=== PATIENT | male | born 1965 | race Caucasian/White ===

== ENCOUNTER 2025-07-01 10:03 | Inpatient (IN) ==
--- NOTE | 2025-06-11 11:01 | PAT Medication Instructions ---
Medication Instructions Date of Service June 11, 2025 Home Medications Medication Instructions Recorded azelastine 137 mcg (0.1 %) nasal 2 spray intranasal BID PRN nasal 07/30/24 spray congestion #30 mL ipratropium bromide 21 mcg (0.03 2 spray intranasal TID PRN 07/30/24 %) nasal spray postnasal drip #30 mL ascorbic acid (vitamin C) 500 mg capsule 500 mg PO QAM multivitamin 1 tab PO QAM cetirizine 10 mg capsule (Allergy Relief (cetirizine)) 10 mg PO QAM tadalafil 5 mg tablet 5 mg PO DAILY PRN Erectile Dysfunction azelastine 137 mcg (0.1 %) nasal spray 2 spray intranasal BID PRN nasal congestion ipratropium bromide 21 mcg (0.03 %) nasal spray 2 spray intranasal TID PRN postnasal drip rosuvastatin 20 mg tablet 10 mg PO Q2D cholecalciferol (vitamin D3) 125 mcg (5,000 unit) tablet (Vitamin D3) 125 mcg PO QAM coenzyme Q10 100 mg capsule (Co Q-10) 100 mg PO QAM escitalopram oxalate 20 mg tablet 20 mg PO QAM fluticasone propionate 50 mcg/actuation nasal spray,suspension 2 spray intranasal DAILY PRN Congestion lansoprazole 30 mg delayed release,disintegrating tablet 30 mg PO QAM Continue as directed rosuvastatin 20 mg tablet 10 mg PO Q2D DO NOT take the morning of surgery ascorbic acid (vitamin C) 500 mg capsule 500 mg PO QAM multivitamin 1 tab PO QAM cetirizine 10 mg capsule (Allergy Relief (cetirizine)) 10 mg PO QAM tadalafil 5 mg tablet 5 mg PO DAILY PRN Erectile Dysfunction cholecalciferol (vitamin D3) 125 mcg (5,000 unit) tablet (Vitamin D3) 125 mcg PO QAM Take morning of surgery With a small sip of water, OTHERWISE NOTHING TO EAT OR DRINK AFTER MIDNIGHT: azelastine 137 mcg (0.1 %) nasal spray 2 spray intranasal BID PRN nasal conges tion (if needed) ipratropium bromide 21 mcg (0.03 %) nasal spray 2 spray intranasal TID PRN postnasal drip (if needed) escitalopram oxalate 20 mg tablet 20 mg PO QAM fluticasone propionate 50 mcg/actuation nasal spray,suspension 2 spray intranasal DAILY PRN Congestion (if needed) lansoprazole 30 mg delayed release,disintegrating tablet 30 mg PO QAM Take evening before surgery azelastine 137 mcg (0.1 %) nasal spray 2 spray intranasal BID PRN nasal congestion (if needed) ipratropium bromide 21 mcg (0.03 %) nasal spray 2 spray intranasal TID PRN postnasal drip (if needed) fluticasone propionate 50 mcg/actuation nasal spray,suspension 2 spray intranasal DAILY PRN Congestion (if needed) Other Notes If you have any questions please call us at [phone] or [phone] or [phone] or [phone]
--- NOTE | 2025-06-16 13:05 | Anesthesiology Consultation ---
Date of Service June 16, 2025 Assessment & Plan (1) Encounter for pre-operative examination: - surgeon ordered medical clearance 06/25 [facility]. Chart Review Chart Review: Patient seen in Pre Admission Testing Teaching & Discussion Pre-Anesthesia Teaching/Discussion Notes: Instructed NPO after midnight before surgery, except medications with 15 cc of water. Medication instructions provid ed according to the PAT guidelines. History Surgery Operation Date: 07/01/25 07:45 Proposed Procedures p L3-S1 Revision Deocompression and Fusion - Kailash Luna DO Height/Weight Height: 6 ft 1 in Weight: 137.2 kg Allergies Allergy/AdvReac Type Severity Reaction Status Date / Time celecoxib [From Celebrex] Allergy Severe Hives Verified 06/16/25 13:30 doxycycline Allergy Severe Hives Verified 06/16/25 13:30 prednisone Allergy Severe hives, Verified 06/16/25 15:26 angioedema Sulfa (Sulfonamide Allergy Severe hives Verified 06/16/25 13:30 Antibiotics) Penicillins Allergy Hives Verified 06/16/25 13:30 albuterol Allergy Severe hives, Uncoded 06/16/25 13:30 angioedema Additional Notes: see notations on allergy list-patient reports multiple (not all) allergies are to pill/capsule formulation but tolerates liquid form. Medications Home Medications Medication Instructions Recorded Confirmed Last Taken ascorbic acid (vitamin C) 500 mg 500 mg PO QAM 09/24/23 06/04/25 Unknown capsule multivitamin 1 tab PO QAM 09/24/23 06/04/25 Unknown cetirizine 10 mg capsule (Allergy 10 mg PO QAM 07/15/24 06/04/25 Unknown Relief (cetirizine)) tadalafil 5 mg tablet 5 mg PO DAILY PRN Erectile 07/15/24 06/04/25 Unknown Dysfunction azelastine 137 mcg (0.1 %) nasal 2 spray intranasal BID PRN nasal 07/30/24 06/04/25 Unknown spray congestion #30 mL ipratropium bromide 21 mcg (0.03 2 spray intranasal TID PRN 07/30/24 06/04/25 Unknown %) nasal spray postnasal drip #30 mL rosuvastatin 20 mg tablet 10 mg PO Q2D 07/30/24 06/04/25 Unknown cholecalciferol (vitamin D3) 125 125 mcg PO QAM 06/04/25 06/04/25 Unknown mcg (5,000 unit) tablet (Vitamin D3) coenzyme Q10 100 mg capsule (Co 100 mg PO QAM 06/04/25 06/04/25 Unknown Q-10) escitalopram oxalate 20 mg tablet 20 mg PO QAM 06/04/25 06/04/25 Unknown fluticasone propionate 50 2 spray intranasal DAILY PRN 06/04/25 06/04/25 Unknown mcg/actuation nasal Congestion spray,suspension lansoprazole 30 mg delayed 30 mg PO QAM 06/04/25 06/04/25 Unknown release,disintegrating tablet Past Medical History Medical History (Updated 06/16/25 @ 13:33 by Pham Irby PA-C) Chronic GERD controlled, stable per pt Chronic rhinitis Hearing loss hearing aids bilat High cholesterol Hx of migraines gets botox injections every 3 months Paresthesia of left leg denies change or worsening PTSD (post-traumatic stress disorder) Sleep apnea CPAP compliant Weakness of right leg denies change or worsening Patient denies h/o stroke, seizures, heart attack, heart failure, DM, HTN, blood clots/DVTs or blood transfusions. Exercise / Class Metabolic Activity II 4-5 Yardwork/Stairs/Walk up hill (shortness of breath with one flight of stairs ongoing for several months with reduction in activity/back pain; denies change/worsening; denies chest discomfort) Past Surgical History Surgical History H/O inguinal hernia repair right H/O lateral meniscus repair of left knee 08/2023 H/O sinus surgery "years ago" History of esophagogastroduodenoscopy (EGD) History of lumbar laminectomy 2014, L3-L5 Hx of colonoscopy S/P repair of hydrocele Past Anesthesia History No Hx of Anesthesia Complications and No Family Hx of Anesthesia Complications History of PONV No Hx of PONV and No Hx of Motion Sickness Social History Smoking Status: Never smoker Do You Dip or Chew Tobacco: No (quit 30 years ago) Hx Alcohol Use: Yes Alcohol type: beer alcohol intake frequency: holidays/special occasions only Hx Substance Use: No substance use type: does not use Review of Systems Patient denies chest pain, fever, chills, cough, wheezing, or palpitations. Physical Exam Vital Signs Vitals BP 123/82 P 68 TEMP 98 SP02 95% on RA RESP 18 Physical Patient resting comfortably in chair in no acute distress, alert and oriented, responding appropriately throughout visit Full cervical extension range of motion without pain TMD 3 finger breadths Mallampati Score 3 Dentition: intact, denies chipped or loose teeth, caps/crowns, implants or bridges Lungs: normal respiratory effort. Good air movement, clear throughout to auscultation, no adventitious breath sounds Cardiac: regular rate and rhythm, no murmurs noted Carotid arteries: negative bruit bilat Lab Results Anesthesia Preop Results Results Anesthesia Widget: WBC 7.07 K/ul (4.8-10.8) 06/16/25 Hgb 15.0 g/dl (14.0-18.0) 06/16/25 Hct 43.2 % (42.0-52.0) 06/16/25 Plt 227 K/uL (130-400) 06/16/25 Na 140 mmol/L (136-145) 06/16/25 K 4.4 mmol/L (3.5-5.1) 06/16/25 Cl 103 mmol/L (98-107) 06/16/25 CO2 30 mmol/L (21-32) 06/16/25 BUN 16 mg/dl (6-23) 06/16/25 Creat 1.24 mg/dl (0.6-1.4) 06/16/25 Glucose Level 96 mg/dl (70-99(Fasting)) 06/16/25 PT 10.4 Seconds (9.0-12.0) 06/16/25 PTT 26 Seconds (21-31) 06/16/25 INR 1.0 (0.9-1.1) 06/16/25 Urine Color Yellow 06/16/25 Urine Appearance Clear (Clear) 06/16/25 Urine pH 5.5 (4.5-7.5) 06/16/25 Urine Specific [place] 1.014 (1.000-1.030) 06/16/25 Urine Protein Negative (Negative) 06/16/25 Urine Glucose (UA) Negative (Negative) 06/16/25 Urine Ketones Negative (Negative) 06/16/25 Urine Blood Negative (Negative) 06/16/25 Urine Nitrite Negative (Negative) 06/16/25 Urine Bilirubin Negative (Negative) 06/16/25 Urine Urobilinogen Negative (Negative) 06/16/25 Urine Leukocyte Esterase Negative (Negative) 06/16/25 Blood Type A Negative 06/16/25 Antibody Screen NEGATIVE 06/16/25 Testing Electrocardiogram Date: 06/16/25 NSR, rate 69 bpm Chest X-Ray Date: 06/16/25 No acute findings.
[~2025-07-01 10:03] MED LIST: CeleBREX 200 MG CAP PO SCH
[2025-07-01] MEDS ORDERED: ROCURONIUM BROMIDE 10 MG/ML 5 ML VIAL IV ONE ×3 (10:30→13:00)
[2025-07-01] MEDS ORDERED: LIDOCAINE 2% 2 ML VIAL/AMP(20MG/ML) INFIL ONE (10:30)
[2025-07-01] MEDS ORDERED: MIDAZOLAM HCL 1 MG/ML 2ML VIAL ONE (10:30)
[2025-07-01] MEDS ORDERED: PROPOFOL IV EMULSION 10 MG/ML 20 ML VIAL IV ONE (10:30)
[2025-07-01] MEDS: LR 15ML/HR IV SCH (10:48)
[2025-07-01] MEDS: LR 60ML/HR IV SCH (10:48)
[2025-07-01] MEDS ORDERED: ATROPINE SULFATE 0.1 MG/ML 10ML SYR IV PRN (10:49)
[2025-07-01] MEDS ORDERED: ONDANSETRON INJ 2 MG/ML 2 ML VIAL IV PRN ×2 (10:49→18:31)
[2025-07-01] MEDS: ACETAMINOPHEN 500 MG TAB PO SCH (11:00)
[2025-07-01] MEDS: GABAPENTIN 600 MG DOSE PO SCH (11:01)
--- NOTE | 2025-07-01 11:14 | History & Physical Bridge Note ---
Date of Service July 01, 2025 History & Physical Bridge Note I have examined the patient, reviewed the History & Physical and in the interval since the performance of the History & Physical I have noted the following changes of clinical significance: no changes noted
--- NOTE | 2025-07-01 11:15 | History & Physical Report ---
Date of Service July 01, 2025 Assessment & Plan (1) Multilevel lumbosacral spondylosis with radiculopathy: Plan: L3-S1 revision decompression fusion History of Present Illness Chief Complaint: Back and bilateral leg pain Primary Care Provider: MARIE Smith This is a 60-year-old male with chronic persistent back and right leg pain after failing course of nonoperative care is here for surgical invention. Allergies Allergy/AdvReac Type Severity Reaction Status Date / Time celecoxib [From Celebrex] Allergy Severe Hives Verified 07/01/25 10:06 doxycycline Allergy Severe Hives Verified 07/01/25 10:06 prednisone Allergy Severe hives, Verified 07/01/25 10:06 angioedema Sulfa (Sulfonamide Allergy Severe hives Verified 07/01/25 10:06 Antibiotics) Penicillins Allergy Hives Verified 07/01/25 10:06 albuterol Allergy Severe hives, Uncoded 07/01/25 10:06 angioedema Home Medications Medication Instructions Recorded Confirmed Type ascorbic acid (vitamin C) 500 mg 500 mg PO QAM 09/24/23 07/01/25 History capsule multivitamin 1 tab PO QAM 09/24/23 07/01/25 History cetirizine 10 mg capsule (Allergy 10 mg PO QAM 07/15/24 07/01/25 History Relief (cetirizine)) tadalafil 5 mg tablet 5 mg PO DAILY PRN Erectile 07/15/24 07/01/25 History Dysfunction azelastine 137 mcg (0.1 %) nasal 2 spray intranasal BID PRN nasal 07/30/24 07/01/25 Rx spray congestion #30 mL ipratropium bromide 21 mcg (0.03 2 spray intranasal TID PRN 07/30/24 07/01/25 Rx %) nasal spray postnasal drip #30 mL rosuvastatin 20 mg tablet 10 mg PO Q2D 07/30/24 07/01/25 History cholecalciferol (vitamin D3) 125 125 mcg PO QAM 06/04/25 07/01/25 History mcg (5,000 unit) tablet (Vitamin D3) coenzyme Q10 100 mg capsule (Co 100 mg PO QAM 06/04/25 07/01/25 History Q-10) escitalopram oxalate 20 mg tablet 20 mg PO QAM 06/04/25 07/01/25 History fluticasone propionate 50 2 spray intranasal DAILY PRN 06/04/25 07/01/25 History mcg/actuation nasal Congestion spray,suspension lansoprazole 30 mg delayed 30 mg PO QAM 06/04/25 07/01/25 History release,disintegrating tablet Past Med/Surg History Problem List (Updated 07/01/25 @ 11:15 by Kailash Luna DO) Multilevel lumbosacral spondylosis with radiculopathy Encounter for pre-operative examination Chronic rhinitis Multiple drug allergies Lumbar radiculopathy Other chronic postprocedural pain Lumbar post-laminectomy syndrome Facet hypertrophy of lumbosacral region Lumbosacral radiculopathy Paresthesia of both lower extremities Weakness of right lower extremity Chronic GERD High cholesterol Medical History (Updated 07/01/25 @ 11:15 by Kailash Luna DO) Hearing loss hearing aids bilat PTSD (post-traumatic stress disorder) Hx of migraines gets botox injections every 3 months Sleep apnea CPAP compliant Weakness of right leg denies change or worsening Paresthesia of left leg denies change or worsening High cholesterol Chronic rhinitis Chronic GERD controlled, stable per pt Surgical History History of esophagogastroduodenoscopy (EGD) Hx of colonoscopy History of lumbar laminectomy 2014, L3-L5 H/O lateral meniscus repair of left knee 08/2023 H/O inguinal hernia repair right H/O sinus surgery "years ago" S/P repair of hydrocele Social History Smoking Status: Never smoker Tobacco Type: Smokeless Tobacco (Dip or Chew) Second Hand Exposure: Yes (hx in the service); Do You Dip or Chew Tobacco: No (quit 30 years ago); Tobacco Cessation Education Requested by Patient: No Hx Alcohol Use: Yes Alcohol type: beer Alcohol type Comment: socially Alcohol Intake Frequency: Monthly or Less Hx Substance Use: No Preferred Language: Georgian Communication Ability: Effective Visual Impairment: No Limitations Hearing Ability: Normal [employer] Required: No Beliefs That Will Affect Care: None marital status: Current Living Situation: Spouse current occupational status: retired current occupation: [employer] and worked for the [employer] Other Information That Helps Us Care for You: No Feels Safe at Home: Yes Safety Concerns: Feels Safe At This Time Assistive Devices: CPAP, Glasses and Hearing Aid - Bilateral Physical Exam Physical Exam: Patient is alert and oriented Heart regular rhythm lungs clear Results & Data Results & Data Vital Signs (Past 12 Hours) Vital Signs Temp Pulse Resp BP Pulse Ox O2 Del Method 07/01/25 10:08 37.1 C 73 18 138/77 95 Room Air, CPAP
[2025-07-01] MEDS: ceFAZolin 3000MG 3,000 MG/72.5 ML BAG IV SCH (11:46)
[2025-07-01] MEDS ORDERED: KETAMINE HCL 10MG/ML SYR ONE (11:48)
[2025-07-01] MEDS ORDERED: DEXAMETHASONE SOD INJ 4 MG/ML VIAL ONE (12:07)
[2025-07-01] MEDS ORDERED: PHENYLEPHRINE 100MCG/ML 5ML SYR ONE ×2 (12:19→13:47)
[2025-07-01] MEDS: BUPIVACAINE/EPINEPHRINE 0.25% 1:200,000 30 ML VIAL ONE (12:23)
[2025-07-01] MEDS: ceFAZolin 330 MG/ML 1 GM VIAL ONE (12:23)
[2025-07-01] MEDS ORDERED: ONDANSETRON INJ 2 MG/ML 2 ML VIAL ONE (13:08)
[2025-07-01] MEDS ORDERED: SUGAMMADEX SODIUM 200 MG/2 ML VIAL IV ONE (13:08)
[2025-07-01] MEDS ORDERED: ePHEDrine sulfate 50 MG/5 ML SYR ONE (13:47)
[2025-07-01] MEDS: FLOSEAL HEMOSTATIC MATRIX 10ML TOP ONE (14:02)
--- NOTE | 2025-07-01 14:14 | Operative Report ---
Post Operative Report Pre & Post Diagnosis Operation Date: 07/01/25 11:25 Pre-Op Diagnosis: (1) Multilevel lumbosacral spondylosis with radiculopathy Post-Op Diagnosis: (1) Multilevel lumbosacral spondylosis with radiculopathy I identified the patient and participated in the time-out.: Yes Procedure Operation Date: 07/01/25 11:25 Actual Procedures #1 revision decompression with medial facetectomies and foraminotomies L3-L4, L4-L5 L5-S1. #2 posterior spinal fusion L3-S1. #3 placement posterior segmental instrumentation L3-S1 using camber. #4 interbody fusion L3-L4 L4-L5 L5-S1. #5 placement Spira 14 x 26 mm at L3-L4, 14 x 26 mm at L4-L5 and 13 x 26 mm at L5-S1. #6 placement of Proteus combined with Koros bone graft in the posterior lateral gutters and os design in the interbody spaces. Surgeon Kailash Luna, DO Director [employer] Ysabel Gonzales Estimated Blood Loss 450 Findings See Below The patient is 6 foot 1 weighing over 134 kg with a BMI in excess of 39. The patient's body habitus combined with significant epidural adhesions added marked difficulty to the surgical procedure. This had at least 40% increase to the operative time. Specimens None Indications This is a 60-year-old male who presents publish diagnosis after failing course of nonoperative care is here for surgical invention. Description of Procedure Patient was met with identified informed consent obtained. Patient was then taken to the operative suite underwent and patient placed in a prone position on the Koko table on top of the Fidel frame. All bony promises well-padded eyes inspected to ensure no external pressure placed upon them. This point the lumbar spine was prepped and draped in a normal sterile fashion. Sharp dissection with the assistance of Bovie cautery from down to and exposing the remaining lamina and transverse processes of L3 L4-5 and the sacral ala bilaterally. Beginning at L5-S1 and revision decompression was performed including medial facetectomies and foraminotomies. Again encountered significant epidural scarring adding to the technical difficulty. I then proceeded to L for L5 and again performed revision medial facetectomies and foraminotomies again encountering marked epidural scarring and lastly L3-L4 revision decompression bilaterally of facetectomies and foraminotomies addressing severe neural compression and epidural scarring. Pedicle screws were then placed in L3-L4-L5 and S1 levels bilaterally with assistance of fluoroscopy and appropriately sized sean placed. By way of transforaminal approach on the right a complete discectomy of L5-S1 was performed endplates corrected to subcortical bleeding bone and a 13 x 26 mm Spira cage tapped in position. Then proceeded to L4-L5 and again by way of transforaminal approach on the right a complete discectomy was performed. Endplates created to subcortical bleeding b one and a 14 x 26 mm Spira cage tapped in position. Lastly approached L3-L4. Again by way of transforaminal approach on the right complete discectomy was performed. Endplates guided to subcortical mean bone and a 14 x 26 mm Spira cage filled with os design bone graft tapped in position. Please note all cages were packed with os design bone graft. The rods were then compressed locked in position bilaterally. The transverse processes of L3 L4-5 and the sacral ala burred to subcortical bleeding bone. Proteus combined with Koros bone graft was placed in the posterolateral gutters. 15 round DONNY drain inserted. Incision was then closed with 1 Vicryl the fascia 2-0 Vicryl subcutaneously and 4-0 Monocryl for final skin closure. Steri-Strips sterile dressing placed. Patient waken taken to PACU in stable condition. Please note Ysabel Gonzales was present out the entire procedure and on the patient positioning complex portion of the surgery and final skin closure. I attest to the content of the Intraoperative Record and any orders documented therein. Any exceptions are noted below.
--- NOTE | 2025-07-01 15:10 | Fluoroscopy Report ---
FL lumbar spine 2-3V CLINICAL HISTORY: L3-S1 REVISION DECOMP AND FUSION COMPARISON STUDY: None FLUOROSCOPY TIME: 33 seconds FLUOROSCOPY IMAGES: 4 EXPOSURE DOSE: 35 mGy FINDINGS: Fluoroscopy was provided for lumbar fusion. IMPRESSION: Intraoperative fluoroscopy. ACT 112: Negative or not required by law. Electronically signed by: Juan Truong M.D. 07/01/2025 3:08 PM
--- NOTE | 2025-07-01 16:00 | Anesthesiology Progress Note ---
Date of Service July 01, 2025 Anesthesia Post Procedure Vital Signs Vital Signs: Temp Pulse Pulse Resp BP Pulse Ox O2 Del Method 07/01/25 15:55 84 16 121/74 96 Nasal Cannula 07/01/25 15:40 85 16 119/71 96 Nasal Cannula 07/01/25 15:25 78 16 121/71 97 Nasal Cannula 07/01/25 15:15 36.6 C 77 16 123/87 97 Nasal Cannula 07/01/25 15:05 80 15 111/77 99 Nasal Cannula 07/01/25 14:55 81 13 124/69 99 Oxymask 07/01/25 14:45 83 13 108/56 L 98 Oxymask 07/01/25 14:37 36.3 C L 86 15 122/65 96 Oxymask 07/01/25 10:08 37.1 C 73 18 138/77 95 Room Air, CPAP O2 Flow Rate 07/01/25 15:55 2 07/01/25 15:40 2 07/01/25 15:25 2 07/01/25 15:15 2 07/01/25 15:05 2 07/01/25 14:55 5 07/01/25 14:45 5 07/01/25 14:37 5 07/01/25 10:08 Pain Intensity Back: Pain Intensity: 6 Transfer of Care Handoff Completed per policy Notes Mental Status: alert / awake / arousable Patient Amnestic to Procedure: Yes Nausea / Vomiting: adequately controlled Pain: adequately controlled Airway Patency, RR, SpO2: stable & adequate BP & HR: stable & adequate Hydration State: stable & adequate Anesthetic Complications: no major complications apparent
[2025-07-01] MEDS ORDERED: DO NOT ADMINISTER PNEUMOCOCCAL VACCINE PRN (18:31)
[2025-07-01] MEDS ORDERED: ALUMINUM/MAGNESIUM SUSP 30 ML UDC PO PRN (18:31)
[2025-07-01] MEDS ORDERED: ACETAMINOPHEN 500 MG TAB PO PRN (18:31)
[2025-07-01] MEDS ORDERED: AZELASTINE HCL 0.1% NASAL 200 SPRAYS/27,400 MCG BTL PRN (18:31)
[2025-07-01] MEDS ORDERED: FAMOTIDINE 20 MG TAB PO PRN (18:31)
[2025-07-01] MEDS ORDERED: MAGNESIUM HYDROXIDE SUSP 30 ML UDC PO PRN (18:31)
[2025-07-01] MEDS ORDERED: ACETAMINOPHEN 1,000 MG/100 ML VIAL IV PRN (18:31)
[2025-07-01] MEDS ORDERED: DO NOT ADMINISTER FLU VACCINE PRN (18:31)
[2025-07-01] MEDS ORDERED: PROMETHAZINE 12.5 MG/50.5 ML BAG IV PRN (18:31)
[2025-07-01] MEDS ORDERED: NALOXONE HCL 0.4 MG/1 ML VIAL/CARP IV PRN (18:31)
[2025-07-01] MEDS ORDERED: SOD PHOSPHATE/SOD BIPHOSPHATE ENEMA 132 ML BTL PR PRN (18:31)
[2025-07-01] MEDS ORDERED: HYDROmorphone INJ 0.5 MG/0.5 ML SYR IV PRN (18:31)
[2025-07-01] MEDS ORDERED: HYDROmorphone INJ 1 MG/ML SYRINGE IV PRN (18:31)
[2025-07-01] MEDS ORDERED: diphenhydrAMINE Capsule 25 MG CAP PO PRN (18:31)
[2025-07-01] MEDS ORDERED: METOCLOPRAMIDE HCL INJ 5 MG/ML 2 ML VIAL IV PRN (18:31)
[2025-07-01] MEDS ORDERED: ONDANSETRON 4 MG OD TAB PO PRN (18:31)
[2025-07-01] MEDS ORDERED: LORazepam 0.5 MG TAB PO PRN (18:31)
[2025-07-01] MEDS ORDERED: LORazepam Inj 0.5 MG in SYRINGE 0.25 ML IV PRN (18:31)
--- NOTE | 2025-07-01 19:01 | Hospitalist Consultation ---
Date of Consultation July 01, 2025 Assessment & Plan (1) Multilevel lumbosacral spondylosis with radiculopathy: POD#0 L3-S1 revision decompression fusion by Dr. Luna Activity and wound care orders as per ortho Pain control with bowel regimen PT/OT Monitor H/H for acute blood loss anemia and transfuse blood products PRN Pre op hgb 15.0 EBL 450cc (2) Chronic GERD: Continue PPI (3) PTSD (post-traumatic stress disorder): Continue escitalopram (4) High cholesterol: Continue statin DVT PROPHYLAXIS GILLIAN/SCDs as per spine Ortho Patient seen in collaboration with Dr. Blue. Thank you for this consultation. We will follow the patient with you during their hospital stay. You can reach a member of the [facility] Hospitalist Team 12/03 via the [facility] Hospitalist role in [place] Text. Supervising Physician Co-Signing Physician Notes Patient was seen and examined at bedside as a medical consult status post lumbar spine surgery. Patient hemodynamically stable, on room air. Patient reports improvement in his BLE radicular pain. Patient reports operative site pain under control. Patient denies smoking, denies febrile illness in the last 1 week. Labs in AM. pt/ot, dvt px , pain mx per primary. On exam: Patient on room air, distal neurovascular status WNL, low back with clean dressing, DONNY drain with moderate serosanguineous collection noted. Heart/lung/abdominal examination fairly WNL. Total time spent independently: 12 minutes. I have seen and examined the patient and have discussed the case with the provider above. I agree with the assessment and plan as stated. History of Present Illness Reason for Consultation: Post op medical management Requesting Physician: Dr. Luna Attending Physician: Kailash Luna, DO History of Present Illness 60-year-old male with PMH chronic rhinitis, HLD, GERD, and other problems listed below who is s/p L3-S1 revision decompression fusion today by Dr. Luna. Postoperative, the patient is doing well. He reports his pain is well- controlled. Denies numbness, tingling, weakness to lower extremities. No chest pain or shortness of breath. Denies lightheadedness or dizziness. No abdominal pain or nausea. Allergies Allergy/AdvReac Type Severity Reaction Status Date / Time celecoxib [From Celebrex] Allergy Severe Hives Verified 07/01/25 10:06 doxycycline Allergy Severe Hives Verified 07/01/25 10:06 prednisone Allergy Severe hives, Verified 07/01/25 10:06 angioedema Sulfa (Sulfonamide Allergy Severe hives Verified 07/01/25 10:06 Antibiotics) Penicillins Allergy Hives Verified 07/01/25 10:06 albuterol Allergy Severe hives, Uncoded 07/01/25 10:06 angioedema Home Medications Medication Instructions Recorded Confirmed Type ascorbic acid (vitamin C) 500 mg 500 mg PO QAM 09/24/23 07/01/25 History capsule multivitamin 1 tab PO QAM 09/24/23 07/01/25 History cetirizine 10 mg capsule (Allergy 10 mg PO QAM 07/15/24 07/01/25 History Relief (cetirizine)) tadalafil 5 mg tablet 5 mg PO DAILY PRN Erectile 07/15/24 07/01/25 History Dysfunction azelastine 137 mcg (0.1 %) nasal 2 spray intranasal BID PRN nasal 07/30/24 07/01/25 Rx spray congestion #30 mL ipratropium bromide 21 mcg (0.03 2 spray intranasal TID PRN 07/30/24 07/01/25 Rx %) nasal spray postnasal drip #30 mL rosuvastatin 20 mg tablet 10 mg PO Q2D 07/30/24 07/01/25 History cholecalciferol (vitamin D3) 125 125 mcg PO QAM 06/04/25 07/01/25 History mcg (5,000 unit) tablet (Vitamin D3) coenzyme Q10 100 mg capsule (Co 100 mg PO QAM 06/04/25 07/01/25 History Q-10) escitalopram oxalate 20 mg tablet 20 mg PO QAM 06/04/25 07/01/25 History fluticasone propionate 50 2 spray intranasal DAILY PRN 06/04/25 07/01/25 History mcg/actuation nasal Congestion spray,suspension lansoprazole 30 mg delayed 30 mg PO QAM 06/04/25 07/01/25 History release,disintegrating tablet Patient History Medical History (Updated 07/01/25 @ 11:15 by Kailash Luna DO) Hearing loss hearing aids bilat PTSD (post-traumatic stress disorder) Hx of migraines gets botox injections every 3 months Sleep apnea CPAP compliant Weakness of right leg denies change or worsening Paresthesia of left leg denies change or worsening High cholesterol Chronic rhinitis Chronic GERD controlled, stable per pt Surgical History History of esophagogastroduodenoscopy (EGD) Hx of colonoscopy History of lumbar laminectomy 2015, L3-L5 H/O lateral meniscus repair of left knee 08/2023 H/O inguinal hernia repair right H/O sinus surgery "years ago" S/P repair of hydrocele Social History Smoking Status: Never smoker Tobacco Type: Smokeless Tobacco (Dip or Chew) Second Hand Exposure: Yes (hx in the service); Do You Dip or Chew Tobacco: No (quit 30 years ago); Tobacco Cessation Education Requested by Patient: No Hx Alcohol Use: Yes Alcohol type: beer Alcohol type Comment: socially Alcohol Intake Frequency: Monthly or Less Hx Substance Use: No Preferred Language: Maldivian Communication Ability: Effective Visual Impairment: No Limitations Hearing Ability: Normal Hired Hand Required: No Beliefs That Will Affect Care: None marital status: Current Living Situation: Spouse current occupational status: retired 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 Blue's addendum for physical exam Results & Data Results & Data Vital Signs (Past 12 Hours) Vital Signs Temp Pulse Pulse Resp BP Pulse Ox O2 Del Method 07/01/25 18:30 36.8 C 87 18 117/73 91 Room Air 07/01/25 18:00 37.0 C 87 18 115/69 94 Nasal Cannula 07/01/25 17:25 88 8 L 105/70 97 Nasal Cannula 07/01/25 16:55 86 16 123/74 95 Nasal Cannula 07/01/25 16:25 36.5 C 82 16 128/86 95 Nasal Cannula 07/01/25 16:10 86 16 127/84 94 Nasal Cannula 07/01/25 15:55 84 16 121/74 96 Nasal Cannula 07/01/25 15:40 85 16 119/71 96 Nasal Cannula 07/01/25 15:25 78 16 121/71 97 Nasal Cannula 07/01/25 15:15 36.6 C 77 16 123/87 97 Nasal Cannula 07/01/25 15:05 80 15 111/77 99 Nasal Cannula 07/01/25 14:55 81 13 124/69 99 Oxymask 07/01/25 14:45 83 13 108/56 L 98 Oxymask 07/01/25 14:37 36.3 C L 86 15 122/65 96 Oxymask 07/01/25 10:08 37.1 C 73 18 138/77 95 Room Air, CPAP O2 Flow Rate 07/01/25 18:30 07/01/25 18:00 2 07/01/25 17:25 2 07/01/25 16:55 2 07/01/25 16:25 2 07/01/25 16:10 2 07/01/25 15:55 2 07/01/25 15:40 2 07/01/25 15:25 2 07/01/25 15:15 2 07/01/25 15:05 2 07/01/25 14:55 5 07/01/25 14:45 5 07/01/25 14:37 5 07/01/25 10:08
[2025-07-01] MEDS: ROSUVASTATIN CALCIUM 10 MG TAB PO SCH (20:31)
[2025-07-01] MEDS: SODIUM CHLORIDE 0.9% 1,000 ML IV SCH (20:31)
[2025-07-01] MEDS: DOCUSATE SODIUM/SENNA 50/8.6MG TAB PO SCH (21:01)
[2025-07-02] MEDS: POLYETHYLENE (MIRALAX) 17 GM PACK PO SCH (05:17)
[2025-07-02 08:26] LABS: Hematocrit (blood only) 36.8 % (42.0-52.0); Hemoglobin 12.5 g/dL (14.0-18.0); Immature Granulocytes # (auto) 0.09 K/uL (0.01-0.20); Immature Granulocytes % (auto) 0.6 %; Mean Corpuscular Hemoglobin 31.2 pg (25.0-34.0); Mean Corpuscular Volume 91.8 fL (80.0-100.0); Platelet Count 210 K/uL (130-400); RDW Standard Deviation 45.1 fL (36.4-46.3); Red Blood Count 4.01 M/uL (4.70-6.10); White Blood Count 13.85 K/ul (4.8-10.8)
[2025-07-02 08:39] LABS: Anion Gap 5.0 (3-11); Blood Urea Nitrogen 19.0 mg/dl (6-23); Calcium 8.6 mg/dl (8.6-10.3); Carbon Dioxide 29.0 mmol/L (21-32); Chloride 103.0 mmol/L (98-107); Creatinine Clr Calc Pharmacy 98.5 ml/min; Glucose 131.0 mg/dl (70-99(Fasting)); Potassium 4.5 mmol/L (3.5-5.1); Sodium 137.0 mmol/L (136-145)
[2025-07-02] MEDS: MULTIVITAMIN TAB PO SCH (08:41)
[2025-07-02] MEDS: CHOLECALCIFEROL 125 MCG (5,000 UNITS) TAB PO SCH (08:41)
[2025-07-02] MEDS: dexAMETHasone 6 MG in SYRINGE 0 ML IV SCH (08:41)
[2025-07-02] MEDS: ASCORBIC ACID 500 MG TAB PO SCH (08:41)
[2025-07-02] MEDS: ESCITALOPRAM OXALATE 20 MG TAB PO SCH (08:41)
[2025-07-02] MEDS: LANSOPRAZOLE 30 MG SOLTAB PO SCH (08:42)
[2025-07-02] MEDS ORDERED: NON-FORMULARY MEDICATION (Coenzyme Q10 [Co Q-10] 100 mg Capsule) PO SCH (09:00)
--- NOTE | 2025-07-02 10:25 | Orthopedic Progress Note ---
Date of Service July 02, 2025 Assessment & Plan (1) Multilevel lumbosacral spondylosis with radiculopathy: Plan: Ramo is postoperative day 1 status post revision decompression and instrumented fusion L3-S1. He is can start physical therapy today. Continue with pain control. Maintain DONNY drain. DVT prophylaxis is in the form of teds and SCDs. Anticipate discharge home this weekend Admission and Anticipated Discharge Date Admission Date: July 01, 2025 Subjective Ramo is postoperative day 1 status post revision decompression instrumented fusion L3-S1. Radicular leg pain that he had preoperatively has resolved. Back pain is controlled. DONNY drain output left shift was 50 cc. He has been up and ambulatory around the room. No other complaints. Review of Systems Review of Systems: All systems reviewed & are unremarkable except as noted in HPI & below Physical Exam Physical Exam: He is seen in conjunction with Dr. Luna He is standing in the room with the assistance of the walker in no acute distress Alert and oriented x 3 Lumbar dressing is clean dry intact with functioning DONNY drain Strength intact bilateral lower extremities Results & Data Vital Signs (Past 12 Hours) Vital Signs Temp Pulse Resp BP Pulse Ox O2 Del Method 07/02/25 07:40 36.7 C 83 16 130/81 93 Room Air 07/02/25 03:00 37.2 C 92 H 18 115/63 91 Room Air 07/01/25 23:49 37.0 C 91 H 18 111/72 92 Room Air
--- NOTE | 2025-07-02 12:11 | Hospitalist Progress Note ---
Date of Service July 02, 2025 Assessment & Plan (1) Multilevel lumbosacral spondylosis with radiculopathy: Plan: Multilevel lumbosacral spondylosis with radiculopathy S/P lumbar decompression, fusion surgery by Dr. Luna on 07/01/2025 Postoperative acute blood loss anemia Leukocytosis likely due to Decadron Continue bowel regimen to prevent constipation Continue PT OT No indication for blood transfusion currently Pain management, wound care as per primary team Monitor CBC (2) Chronic GERD: Plan: Continue PPI (3) PTSD (post-traumatic stress disorder): Plan: Continue escitalopram (4) High cholesterol: Plan: Continue statin Obesity BMI 39 Lifestyle modifications recommended DVT Px GILLIAN/SCDs as per spine Ortho Thank you for this consultation. We will follow the patient with you during their hospital stay. You can reach a member of the [facility] Hospitalist Team 12/03 via the [facility] Hospitalist role in [place] Text. Admission and Anticipated Discharge Date Admission Date: July 01, 2025 Subjective Patient is seen and examined at bedside States feeling well today Denies any significant pain at surgical site Was ambulating in hallway this morning + Flatus, no BM today Denies any chest pain, dyspnea, nausea, vomiting, abdominal pain, dizziness Review of Systems Review of Systems: All systems reviewed & are unremarkable except as noted in Subjective Physical Exam Physical Exam: Physical Exam: Vitals signs as noted above General Appearance:Obese, no apparent distress Head: normocephalic, Atraumatic Eyes: normal inspection, EOMI Neck: supple, Trachea midline Respiratory/Chest: Normal breath sounds, CTA, No accessory muscle use Cardiovascular: S1, S2, No murmur Abdomen/GI:Soft, Non tender, Bowel sounds present Back: Surgical dressing, +Drain Extremities/Musculoskeletal:normal inspection, no edema Neurologic/Psych:AAOX3, grossly no focal neurological deficits Skin: normal color, warm Results & Data Results & Data Vital Signs (Past 12 Hours) Vital Signs Temp Pulse Resp BP Pulse Ox O2 Del Method 07/02/25 07:40 36.7 C 83 16 130/81 93 Room Air 07/02/25 03:00 37.2 C 92 H 18 115/63 91 Room Air Laboratory Results Short CBC 07/02/25 Range/Units 08:03 WBC 13.85 H (4.8-10.8) K/ul Hgb 12.5 L (14.0-18.0) g/dL Hct 36.8 L (42.0-52.0) % Plt Count 210 (130-400) K/uL [facility] 07/02/25 08:03 Sodium 137 Potassium 4.5 Chloride 103 Carbon Dioxide 29 BUN 19 Creatinine 1.12 Glucose 131 H Calcium 8.6
[2025-07-03 08:08] LABS: Hematocrit (blood only) 33.7 % (42.0-52.0); Hemoglobin 11.9 g/dL (14.0-18.0); Mean Corpuscular Hemoglobin 32.2 pg (25.0-34.0); Mean Corpuscular Volume 91.3 fL (80.0-100.0); Platelet Count 182 K/uL (130-400); RDW Standard Deviation 45.4 fL (36.4-46.3); Red Blood Count 3.69 M/uL (4.70-6.10); White Blood Count 10.88 K/ul (4.8-10.8)
[2025-07-03 08:26] LABS: Anion Gap 6.0 (3-11); Blood Urea Nitrogen 21.0 mg/dl (6-23); Calcium 8.6 mg/dl (8.6-10.3); Carbon Dioxide 28.0 mmol/L (21-32); Chloride 103.0 mmol/L (98-107); Creatinine Clr Calc Pharmacy 104.1 ml/min; Glucose 108.0 mg/dl (70-99(Fasting)); Potassium 4.0 mmol/L (3.5-5.1); Sodium 137.0 mmol/L (136-145)
--- NOTE | 2025-07-03 10:05 | Orthopedic Progress Note ---
Date of Service July 03, 2025 Assessment & Plan (1) Multilevel lumbosacral spondylosis with radiculopathy: Plan: At this time we will continue physical therapy monitor his DONNY output advance his bowel regimen anticipate discharge home tomorrow. Admission and Anticipated Discharge Date Admission Date: July 01, 2025 Subjective Patient is back pain is controlled leg symptoms markedly improved Physical Exam Physical Exam: Patient is in the chair at the bedside. He is comfortable. Distracted testing. Results & Data Vital Signs (Past 12 Hours) Vital Signs Temp Pulse Pulse Resp BP Pulse Ox O2 Del Method 07/03/25 08:00 36.7 C 64 16 128/78 95 Room Air 07/03/25 07:30 Room Air 07/03/25 07:04 36.7 C 76 16 115/73 96 Room Air 07/02/25 23:17 36.8 C 82 18 122/74 94 Room Air Queries Orthopedic Spine Obesity: Yes
--- NOTE | 2025-07-03 15:51 | Hospitalist Progress Note ---
Date of Service July 03, 2025 Assessment & Plan (1) Multilevel lumbosacral spondylosis with radiculopathy: Plan: Multilevel lumbosacral spondylosis with radiculopathy S/P lumbar decompression, fusion surgery by Dr. Luna on 07/01/2025 Postoperative acute blood loss anemia Leukocytosis likely due to Decadron trending down-- Continue bowel regimen to prevent constipation Continue PT OT No indication for blood transfusion currently Pain management, wound care as per primary team Monitor CBC Likely discharge home tomorrow per Ortho Will advised to follow-up with PCP on discharge (2) Chronic GERD: Plan: Continue PPI (3) PTSD (post-traumatic stress disorder): Plan: Continue escitalopram (4) High cholesterol: Plan: Continue statin Obesity BMI 39 Lifestyle modifications recommended DVT Px GILLIAN/SCDs as per spine Ortho Thank you for this consultation. We will follow the patient with you during their hospital stay. You [facility] via the [facility] in [place] Text. Admission and Anticipated Discharge Date Admission Date: July 01, 2025 Subjective Patient is seen and examined at bedside States feeling well today No new complaints Sitting in chair comfortably during my encounter Discussed with orthospine today Denies any chest pain, dyspnea, nausea, vomiting, abdominal pain, dizziness Review of Systems Review of Systems: All systems reviewed & are unremarkable except as noted in Subjective Physical Exam Physical Exam: Physical Exam: Vitals signs as noted above General Appearance:Obese, no apparent distress Head: normocephalic, Atraumatic Eyes: normal inspection, EOMI Neck: supple, Trachea midline Respiratory/Chest: Normal breath sounds, CTA, No accessory muscle use Cardiovascular: S1, S2, No murmur Abdomen/GI:Soft, Non tender, Bowel sounds present Back: Surgical dressing, +Drain Extremities/Musculoskeletal:normal inspection, no edema Neurologic/Psych:AAOX3, grossly no focal neurological deficits Skin: normal color, warm Results & Data Results & Data Vital Signs (Past 12 Hours) Vital Signs Temp Pulse Pulse Resp BP Pulse Ox O2 Del Method 07/03/25 12:15 36.7 C 70 18 126/82 95 Room Air 07/03/25 08:00 36.7 C 64 16 128/78 95 Room Air 07/03/25 07:30 Room Air 07/03/25 07:04 36.7 C 76 16 115/73 96 Room Air Laboratory Results Short CBC 07/03/25 Range/Units 07:12 WBC 10.88 H (4.8-10.8) K/ul Hgb 11.9 L (14.0-18.0) g/dL Hct 33.7 L (42.0-52.0) % Plt Count 182 (130-400) K/uL BMP 07/03/25 07:12 Sodium 137 Potassium 4.0 Chloride 103 Carbon Dioxide 28 BUN 21 Creatinine 1.06 Glucose 108 H Calcium 8.6
[2025-07-03 15:54] VITALS: TEMP 98.2
[2025-07-04 07:39] VITALS: BP 160/89; PULSE 66; RESP 16; O2SAT 93
--- NOTE | 2025-07-04 09:29 | Discharge Summary ---
Date of Service July 04, 2025 Admission HPI Per Admitting Provider This is a 60-year-old male with chronic persistent back and right leg pain after failing course of nonoperative care is here for surgical invention. Principal Diagnosis Multilevel lumbar spondylosis with radiculopathy Discharge Data Allergies Allergy/AdvReac Type Severity Reaction Status Date / Time celecoxib [From Celebrex] Allergy Severe Hives Verified 07/01/25 10:06 doxycycline Allergy Severe Hives Verified 07/01/25 10:06 prednisone Allergy Severe hives, Verified 07/01/25 10:06 angioedema Sulfa (Sulfonamide Allergy Severe hives Verified 07/01/25 10:06 Antibiotics) Penicillins Allergy Hives Verified 07/01/25 10:06 albuterol Allergy Severe hives, Uncoded 07/01/25 10:06 angioedema Consultations 07/01/25 18:31 Consult Hospitalist Routine Procedures Performed Operation Date: 07/01/25 11:25 Actual Procedures p L3-S1 Revision Decompression and Fusion(Not Applicable) - Kailash Luna DO Ordered Studies 07/01/25 11:25 FL lumbar spine 2-3V Routine Hospital Course (1) Multilevel lumbosacral spondylosis with radiculopathy: Patient underwent revision decompression fusion tolerated this well was taken orthopedic for postoperative. Postop he progressed appropriate. Improvement of his leg pain and strength. DONNY drain decreased appropriately. Pain controlled. Subsidy discharged home. Discharge orders and instructions from the chart for further review. Total Time Total Time Spent Total Time Spent (In Minutes): 20 minutes Discharge Plan Discharge Items Patient Disposition: Home - Self-Care Reason For Visit: Multilevel Lumosacral Spondylosis with Discharge Diagnosis: Multilevel lumbosacral spondylosis with radiculopathy Activity: As commented below Non-emergency contact: Primary Care Provider Call non-emergency contact if: you have any medication questions Follow-up/Referrals: Anna Vides CRNP [Primary Care Provider] - Diet: Regular Addtl Attending Provider Instructions: ACTIVITY RECOMMENDATIONS: SELF CARE INSTRUCTIONS AFTER THORACIC/LUMBAR FUSIONS 1. You may walk to your tolerance. It is good exercise for your legs and back. Expect some back and intermittent leg aches and pains. 2. You may perform "counter-top" level activities (make a sandwich, jose with a project, etc.). 3. No bending or lifting of more than 10 pounds or back twisting of any nature (roll like a log when turning in bed). 4. You may ride in a car for 20-30 minutes at a time. No driving until after your first visit with your doctor. 5. Frequent changes of position and restricting sitting to 30 minutes at a time will help limit the amount of back spasms and stiffness you may experience. 6. You may discontinue the use of ambulatory aids (cane, crutches, etc.) once your strength and confidence allow. 7. You may supervisor instrument mechanics the shower and let water strike your incision when you arrive home at least once daily. Do not take a tub bath, sit in a hot tub or go into a swimming pool until after your first recheck in the office. 8. You may resume previous diet. SPECIAL CARE INSTRUCTIONS: VERY IMPORTANT TO READ AND REVIEW A. Your surgical incision has been closed with a cosmetic suture under the skin that will dissolve in about 6 weeks. In 14 days, you can use a pair of clean scissors and cut the suture that is left outside of the skin at the ends of your incision. 1. The small skin tapes can be removed 7 days after surgery if they have not fallen off by that point. 2. You may keep the wound open to air as much as possible to promote healing after post-op day number 5 unless told otherwise by your doctor. 3. If you think the wound looks like it is becoming infected (redness or worsening drainage) and/or you are experiencing fever, chill or worsening back pain and muscle spasms, contact the office so that we may evaluate you as soon as possible. B. Complications are uncommon, but please contact us if you have any signs or symptoms of: 1. wound infection (fever higher than 102.5 degrees F, redness, separation of wound, drainage, or increasing pain from the incision) 2. blood clots in legs (pain, swelling, redness and warmth in legs) 3. urinary tract infection (fever higher than 102.5 degrees F, burning upon urination or increased frequency of urination) 4. nerve problems (inability to walk on your toes or heels, numbness, loss of bowel or bladder control) 5. any other symptoms that concern you C. Please call the office at if you have any concerns or questions about your operation or recovery. D. No smoking! Smoking drastically decreases the chance of a solid fusion. E. Do not take any anti-inflammatory medications (Indocin, Advil, Motrin, Aspirin, Naprosyn, etc.) as these may inhibit the chance of a solid fusion. Tylenol is okay to take for pain. MANAGING PAIN AFTER SPINAL SURGERY 1. Narcotic medication is intended for short-term use and will be provided for surgical pain. Surgical pain usually lasts for a period of 4-6 weeks. Narcotic medication includes Percocet, Vicodin, Darvocet, Tylenol #3 or Lortab. 2. Longer-term pain is more appropriately treated with non-narcotic medication such as Tylenol ES. 3. Muscle spasm is not appropriately treated with narcotics. Muscle relaxers such as Soma, Flexeril or Skelaxin can be used along with Tylenol ES. 4. Remember that we all live with some "aches and pains". This is not unusual or uncommon after an injury or as we get older. a. Back pain is expected and may include muscle spasms for 4 to 6 weeks after surgery. The pain should gradually improve. If the pain worsens for no apparent reason, please contact the office. b. Intermittent leg pain may also be experienced and should not be concerned about unless it worsens for no apparent reason. If so, please contact the office. 5. We will provide appropriate medication within the normal guidelines of their prescribed use. We will also be very cautious and aware of potential abuse and extended duration of patients' medication needs. a. Pain medications are for your comfort and to assist with sleep and rest so that the tissue can heal. They are not provided in order to return to normal activity and should not be used through the day. To do so or worsening pain at night can result from ongoing tissue damage and development of tolerance to the prescribed medicine. 6. Please allow 2-3 days to process refills. Prescriptions will not be mailed but must be picked up at the office. FOLLOW UP VISIT: Keep your scheduled follow-up appointment. Any questions, please call the office at . Pending Studies at Discharge: No Stand-Alone Forms: My [employer], Smoking Cessation Medications and DC Order Prescriptions: New tramadol 50 mg tablet 50 mg PO Q6H PRN (Reason: pain, moderate) Qty: 30 0RF oxycodone 5 mg tablet 5 mg PO Q6H PRN (Reason: pain) Qty: 30 0RF Rx Instructions: Oxycodone for severe pain tramadol for moderate pain Continued ascorbic acid (vitamin C) 500 mg capsule 500 mg PO QAM multivitamin Tablet 1 tab PO QAM rosuvastatin 20 mg tablet 10 mg PO Q2D azelastine 137 mcg (0.1 %) spray,non-aerosol 2 spray intranasal BID PRN (Reason: nasal congestion) Qty: 30 11RF Rx Instructions: administer into each nostril ipratropium bromide 21 mcg (0.03 %) spray,non-aerosol 2 spray intranasal TID PRN (Reason: postnasal drip) Qty: 30 11RF Rx Instructions: administer into each nostril Allergy Relief (cetirizine) 10 mg capsule 10 mg PO QAM tadalafil 5 mg tablet 5 mg PO DAILY PRN (Reason: Erectile Dysfunction) escitalopram oxalate 20 mg Tablet 20 mg PO QAM coenzyme Q10 [Co Q-10] 100 mg Capsule 100 mg PO QAM lansoprazole 30 mg Tablet,Disintegrat, Delay Rel 30 mg PO QAM cholecalciferol (vitamin D3) [Vitamin D3] 125 mcg (5,000 unit) Tablet 125 mcg PO QAM fluticasone propionate 50 mcg/actuation spray,suspension 2 spray intranasal DAILY PRN (Reason: Congestion) Rx Instructions: administer into each nostril Discharge Orders: Discharge Order (Routine); Ordered 07/04/25 Ordered By: Kailash Luna Admission Data Admit Date/Time: 07/01/25 14:21 Attending Provider: Kailash Luna Admit Provider: Kailash Luna Primary Care Provider: Anna Vides Other Providers: [facility],Home Health; Diana Newell
--- NOTE | 2025-07-04 11:56 | Hospitalist Progress Note ---
Date of Service July 04, 2025 Assessment & Plan (1) Multilevel lumbosacral spondylosis with radiculopathy: Plan: Multilevel lumbosacral spondylosis with radiculopathy S/P lumbar decompression, fusion surgery by Dr. Luna on 07/01/2025 Postoperative acute blood loss anemia Leukocytosis likely due to Decadron trended down Continue bowel regimen to prevent constipation Continue PT OT No indication for blood transfusion currently Pain management, wound care as per primary team Monitor CBC Advised to follow-up with PCP on discharge Pain is well-controlled Advised to follow activity as per orthospine (2) Chronic GERD: Plan: Continue PPI (3) PTSD (post-traumatic stress disorder): Plan: Continue escitalopram (4) High cholesterol: Plan: Continue statin Obesity BMI 39 Lifestyle modifications recommended DVT Px GILLIAN/SCDs as per spine Ortho Thank you for this consultation. We will follow the patient with you during their hospital stay. You can [facility] a [facility] via the [facility] in [place] Text. Admission and Anticipated Discharge Date Admission Date: July 01, 2025 Subjective Patient is seen and examined at bedside " I am going home today" States feeling well today Eager to get discharged No new complaints Denies any chest pain, dyspnea, nausea, vomiting, abdominal pain, dizziness Review of Systems Review of Systems: All systems reviewed & are unremarkable except as noted in Subjective Physical Exam Physical Exam: Physical Exam: Vitals signs as noted above General Appearance:Obese, no apparent distress Head: normocephalic, Atraumatic Eyes: normal inspection, EOMI Neck: supple, Trachea midline Respiratory/Chest: Normal breath sounds, CTA, No accessory muscle use Cardiovascular: S1, S2, No murmur Abdomen/GI:Soft, Non tender, Bowel sounds present Back: Surgical dressing, +Drain Extremities/Musculoskeletal:normal inspection, no edema Neurologic/Psych:AAOX3, grossly no focal neurological deficits Skin: normal color, warm Results & Data Results & Data Vital Signs (Past 12 Hours) Vital Signs Temp Pulse Resp BP Pulse Ox O2 Del Method 07/04/25 07:36 36.8 C 66 16 160/89 H 93 Room Air
== END 2025-07-04 11:51 | disposition home or self-care (01) | DRG 427 ==
LOC: ASU 10:03 → PACUINP 14:21 → 3N 18:26